=== PATIENT | male | born 1970 | race Caucasian/White ===

== ENCOUNTER 2018-07-18 16:01 | Outpatient (CLI) | payer OTHER ==
[2012-10-24 12:01] VITALS: BP 131/72
== END 2018-07-18 16:03 ==
LOC: LAB 16:01
PROVIDERS: ATTEND Family Medicine
DX: R07.9 Chest pain, unspecified (principal)

== ENCOUNTER 2019-05-07 11:49 | Emergency (ER) | payer OTHER ==
--- NOTE | 2019-05-07 11:54 | ED Physician Documentation ---
General Adult - HISTORIAN Historian: patient - HPI Stated Complaint: knee pain Chief Complaint: Lower Extremity Injury Additional Information: Patient states that he fell down 2-3 steps on a stairway and landed on his left knee. He had some immediate pain and notice/felt that his knee cap was no placed right. He had pain with movement. Patient denies any other injury or pain. Denies any head trauma. Onset: minutes Timing: still present Context: fell down stairs - ROS CONST: no problems NEURO/PSYCH: depression - PAST HX Past History: kidney stones, other (varicose veins) Other History: none Surgeries/Procedures: other (varicose vein surgery) Allergies/Adverse Reactions: Allergies Allergy/AdvReac Type Severity Reaction Status Date / Time ampicillin [Ampicillin] Allergy Verified 05/07/19 12:06 Home Medications: Ambulatory Orders Medication Instructions Recorded Aspirin [Aspirin EC] 81 mg PO 10/23/12 Hydrochlorothiazide 12.5 mg PO DAILY u2 01/03/18 - SOCIAL HX Smoking History: non-smoker Alcohol Use: none Drug Use: none - FAMILY HX Family History: Yes (DM2, HTN, varicose veins) - VITAL SIGNS Vital Signs: Vital Signs Temp Pulse Resp BP Pulse Ox 131/72 10/24/12 10:00 - REVIEWED ASSESSMENTS Nursing Assessment Reviewed: Yes Vitals Reviewed: Yes Progress - Progress Progress: 1242 Patient resting comfortably at this time. Awaiting call back from [facility] ED Results Lab/Radiology - Radiology Radiology Impressions: High riding patella, possible disruption of patellar tendon. inferior aspect of patella superior to femoral condyles No fracture noted General Adult Physical Exam - PHYSICAL EXAM GENERAL APPEARANCE: mild distress EENT: eye inspection normal, ENT inspection normal NECK: normal inspection RESPIRATORY: no resp distress CVS: reg rate & rhythm, heart sounds normal, equal pulses, no murmur ABDOMEN: soft, normal bowel sounds BACK: normal inspection SKIN: warm/dry EXTREMITIES: other (patella midline but located superior to normal location, large subpatellar effusion) NEURO: oriented X3, CN's nml as tested, motor nml, sensation nml, mood/affect nml Discharge Clincal Impression: Knee injury Qualifiers: Encounter type: initial encounter Laterality: left Qualified Code(s): S89.92XA - Unspecified injury of left lower leg, initial encounter Referrals: Elin Ford MD [Primary Care Provider] - 2 Days Condition: Stable Decision to Admit: [id number] Date of Decison to Admit: 05/07/19 Decision Time: 13:00
[2019-05-07] MEDS ORDERED: fentaNYL CITRATE/PF 100 MCG/2 ML INJ. IVP ONE (11:57)
--- NOTE | 2019-05-07 12:19 | Diagnostic Imaging Report ---
PATIENT MR#: [id number] PATIENT PATIENT NAME: MOI FRIEDMAN DATE OF : 1970 REFERRING PHYSICIAN: Rojelio Gibson EXAM DATE: 05/07/2019 ACCESSION NUMBER: [id number] EXAM DESCRIPTION: KNEE 1 OR 2 VIEWS Left knee 2 views Clinical history pain Technique AP and cross table lateral Findings: There is a patella [place]. Cannot rule out patellar tendon disruption. No fracture or joint e ffusion is identified. Read by: Dr. Bhupinder Yeung Transcribed by: Transcribed Date: Electronically signed by: Dr. Bhupinder Yeung Date signed: 05/07/2019 12:18:12 PM
--- NOTE | 2019-05-07 12:47 | Diagnostic Imaging Report ---
PATIENT MR#: [id number] PATIENT PATIENT NAME: MOI FRIEDMAN DATE OF : 1970 REFERRING PHYSICIAN: Rojelio Gibson EXAM DATE: 05/07/2019 ACCESSION NUMBER: [id number] EXAM DESCRIPTION: KNEE 1 OR 2 VIEWS Left knee 2 views Comparison same date Technique AP and cross table lateral Findings: The patella [place] is present. No fracture is seen. There is no change from previous radiogra ph Read by: Dr. Bhupinder Yeung Transcribed by: Transcribed Date: Electronically signed by: Dr. Bhupinder Yeung Date signed: 05/07/2019 12:46:12 PM
[2019-05-07 18:36] VITALS: BP 133/76
== END 2019-05-07 14:15 | disposition short-term general hospital (02) ==
LOC: ED 11:49
DX: S89.92XA Unspecified injury of left lower leg, initial encounter (principal); W10.9XXA Fall (on) (from) unspecified stairs and steps, initial encounter
CPT/HCPCS: 73560; 96374; 99282; 99284; J3010; S1016